=== PATIENT | male | born 1940 | race Caucasian/White ===

== ENCOUNTER 2019-09-25 06:31 | Day surgery (SDC) | payer OTHER ==
[~2019-09-25] VITALS: Ht 172.7 cm; Wt 111.1 kg
--- NOTE | ~2019-09-25 | O ---
[facility] [place] [address] OPERATIVE REPORT Name: CLAUDE MILLER Room #: 150-5 [facility]..#: [id number] Admission: 09/25/19 Attend Phys: Noe Baumann MD Discharge: Date of : 44 Report #: [id number] THIS REPORT FOR: //name// CC: Kacie Baumann DATE OF SERVICE: 09/25/2019 SURGEON: Noe Baumann MD [employer]ETING MANAGER: None. PREOPERATIVE DIAGNOSIS: Bilateral lower lid ectropion. POSTOPERATIVE DIAGNOSIS: Bilateral lower lid ectropion. OPERATION PERFORMED: Bilateral lower lid ectropion repair. ANESTHESIA: Local with IV sedation. COMPLICATIONS: None. INDICATIONS FOR PROCEDURE: This patient has bilateral acquired lower lid ectropion with chronic tearing, keratopathy and discharge. The current procedures are undertaken in order to improve the patient's visual function, lacrimal outflow, and level of comfort. Informed consent was obtained to include but not limit to the risk of loss of vision, bleeding, infection, scarring, failure to improve the problem and need for further surgery. DESCRIPTION OF OPERATION: The patient was taken to the operating room where 2% Xylocaine with epinephrine mixed with equal parts of 0.75% Marcaine with Wydase was administered transcutaneously and transconjunctivally to each lower lid and lateral canthal area. The patient was then prepped and draped in the usual sterile fashion. A Campbell clamp was then used to clamp the left lateral canthus following which a sharp canthotomy and cantholysis were performed. The tarsal strip was prepared laterally, removing the lash bearing portion of the redundant lid margin and the redundant tarsal plate. Hemostasis was achieved with a monopolar cautery, as it was throughout the case. The tarsal strip was then secured to the internal portion of the lateral orbital tubercle with two interrupted 5-0 Prolene sutures. The lateral canthal angle was sharply reformed as the subcutaneous structures and the skin were closed with multiple interrupted 6-0 plain gut sutures. Attention was then turned to the right side where the same procedure was performed. The wounds were cleaned and dressed with ophthalmic antibiotic [address] [address] OPERATIVE REPORT Name: CLAUDE MILLER Room #: 150-5 [facility]#: [id number] Admission: 09/25/19 Attend Phys: Noe Baumann MD Discharge: Date of : 44 Report #: [id number] ointment. The patient was then transported to the recovery area, having tolerated the procedure well with no anesthetic or operative complications being noted. By: [id number] Noe Baumann MD /nt
[~2019-09-25 06:31] MED LIST: AMITRIPTYLINE H50 M2 PO; AMLODIPINE BESY10 MG PO; ASA81BEC PO; ATIVAN1 M1 PO; CARVEDILOL3.125 MG PO; DICLOFENAC SODI75 MG PO; FENOFIBRATE200 MG PO; FUROSEMIDE 20 M20 MG PO; GABAPENTIN800 M1 PO; IRON18 M1 PO; LATANOPROST 0.2.5 ML OPHTHALMIC; LIPITOR 40 MG T40 M1 PO; METFORMIN HCL500 M3 PO; MULTI VITAMIN1 EACH PO; NOVOLOG FL100 UNIT/M SUBQ; NOVOLOG100 UNIT/M SUBQ; POTASSIUM CITR15 MEQ PO; TRESIBA FL100 UNIT/1 SUBQ; TRESIBA100 UNIT/1 SUBQ; VASCEPA1 GM PO; VICTOZA0.6 MG/0.1 SUBQ; VITAMIN D310000 UNI1 PO; ZESTRIL20 MG PO
[2019-09-25 08:11] LABS: CALCIUM 10.1 mg/dL (8.5-10.1); CREATININE 1.2 mg/dL (0.7-1.3); POTASSIUM 4.1 mmol/L (3.5-5.1)
[2019-09-25 09:38] VITALS: BP 121/93
== END 2019-09-25 11:15 | disposition home or self-care (01) ==
LOC: OR 06:31 → TBA 06:57 → OR 10:42
PROVIDERS: Ophthalmology
DX: H02.102 Unspecified ectropion of right lower eyelid (principal); H02.105 Unspecified ectropion of left lower eyelid; I10 Essential (primary) hypertension; E11.9 Type 2 diabetes mellitus without complications; E78.5 Hyperlipidemia, unspecified; G47.30 Sleep apnea, unspecified; H40.9 Unspecified glaucoma; Z98.890 Other specified postprocedural states; Z79.899 Other long term (current) drug therapy; Z79.4 Long term (current) use of insulin; Z96.651 Presence of right artificial knee joint; Z79.82 Long term (current) use of aspirin
CPT/HCPCS: 50010; 50101; 50386; 50398; 51636; 62110; 62850; 70005